=== PATIENT | female | born 1945 | race Caucasian/White ===

== ENCOUNTER 2019-02-03 05:38 | Inpatient (IN) | payer MEDICARE, OTHER ==
[2019-01-21 13:02] LABS: BASOPHILS % (AUTO) 0.5 % (0-1); EOSINOPHILS # (AUTO) 0.2 X10'3 (0-0.9); EOSINOPHILS % (AUTO) 2.4 % (0-6); LYMPHOCYTES # (AUTO) 2.1 X10'3 (1.1-4.8); LYMPHOCYTES % (AUTO) 23.6 % (21-51); MEAN CORPUSCULAR HEMOGLOBIN 30.3 PG (27.0-31.0); MEAN CORPUSCULAR HGB CONC 33.4 g/dL (33.0-36.5); MEAN CORPUSCULAR VOLUME 90.6 FL (78-98); MEAN PLATELET VOLUME 9.1 FL (7.4-10.4); MONOCYTES # (AUTO) 0.7 X10'3 (0-0.9); MONOCYTES % (AUTO) 7.5 % (2-12); PRE OP HEMATOCRIT 39.8 % (35.0-45.0); PRE OP HEMOGLOBIN 13.3 g/dL (12.0-16.0); PRE OP PLATELET COUNT 253 X10'3 (140-440); RED BLOOD COUNT 4.39 X10'6 (4.20-5.60); RED CELL DISTRIBUTION WIDTH 13.2 % (11.5-14.5)
[2019-01-21 13:04] LABS: CLARITY,URINE CLOUDY (Clear); COLOR,URINE YELLOW (Yellow); GLUCOSE, URINE NEGATIVE (Neg); KETONES,URINE NEGATIVE (Neg); LEUKOCYTE ESTERASE ,URINE MODERATE (Neg); NITRITES, URINE POSITIVE (Neg); OCCULT BLOOD,URINE MODERATE (Neg); PROTEIN,URINE NEGATIVE (Neg); UA COLLECTION TYPE CLN CATCH MIDSTREAM; UROBILINOGEN,URINE 0.2 E.U/dL (0.2-1.0)
[2019-01-21 13:10] LABS: MUCUS STRANDS FEW /LPF (Neg); SQUAMOUS EPITHELIAL CELL,UR FEW /LPF (FEW); WBC CLUMPS,URINE MANY /HPF (NEGATIVE); WBC,URINE 50-100 /HPF (0-4)
[2019-01-21 13:11] LABS: BACTERIA,URINE 2+ /HPF (Neg)
[2019-01-21 13:27] LABS: ALBUMIN 3.6 G/DL (3.4-5.0); ALBUMIN/GLOBULIN RATIO 1.1 (1.1-1.5); ALKALINE PHOSPHATASE 80 IU/L (46-116); BLOOD UREA NITROGEN 22 MG/DL (7-18); BUN/CREATININE RATIO 34.9 (6.6-38.0); CALCIUM 8.9 MG/DL (8.5-10.1); CHLORIDE 105 MMOL/L (99-107); CREATININE 0.63 MG/DL (0.40-0.90); PRE OP ALT 36 U/L (30-65); PRE OP ANION GAP 7 (8-16); PRE OP AST 17 U/L (10-37); PRE OP BILIRUB, TOTAL 0.3 MG/DL (0.0-1.0); PRE OP GLUCOSE 95 MG/DL (70-104); PRE OP POTASSIUM 3.6 MMOL/L (3.4-5.1); PRE OP SODIUM 142 MMOL/L (135-145); TOTAL PROTEIN 6.9 G/DL (6.4-8.2); eGFR > 90 ML/MIN
[2019-02-03] VITALS (20 sets, daily range): BP systolic 110–175; BP diastolic 48–93
[~2019-02-03] VITALS: Ht 165.1 cm; Wt 108.7 kg
[~2019-02-03 05:38] MED LIST: ANAS1TAB49 PO; CA C1TAB95 PO; CELE-193 PO; GLUC100017 PO; HYAL1POW9 PO; MAGN400C PO; MULT-1074 PO; POTASSIUM OTC PO; TURM500C4 PO
[2019-02-03] MEDS ORDERED: celeCOXIB 100mg capsule PO ONE (06:00)
[2019-02-03] MEDS ORDERED: tranexamic acid inj. 1,000 MG in normal saline 100 ML IV ONE (06:00)
[2019-02-03] MEDS ORDERED: acetaminophen 325mg tablet PO ONE (06:00)
[2019-02-03] MEDS ORDERED: gabapentin 300mg capsule PO ONE (06:00)
[2019-02-03] MEDS ORDERED: oxyCODONE SR 10mg (sust. release) tab -2 tabs (20mg) PO ONE (06:00)
[2019-02-03] MEDS ORDERED: metoclopramide 5 mg/ml inj IV ONE (06:00)
[2019-02-03] MEDS ORDERED: ringers solution, lacted 1,000 ML IV SCH ×2 (06:00→09:43)
[2019-02-03] MEDS ORDERED: famotidine 20mg tablet PO ONE (06:00)
[2019-02-03] MEDS ORDERED: ceFAZolin 2gm in dextrose, iso 100 ML IV ONE (06:00)
[2019-02-03] MEDS ORDERED: vancomycin inj 1,500 MG in normal saline 300ml IV soln IV ONE (06:00)
[2019-02-03] MEDS ORDERED: LIDOcaine 1% (10mg/ml) 2ml vial ONE (06:04)
[2019-02-03] MEDS ORDERED: HYDROmorphone inj. 0.5 MG/0.5 ML DISP.SYRIN IV PRN (06:45)
[2019-02-03] MEDS ORDERED: magnesium hydroxide 30ml (MOM) UD suspension PO PRN (06:45)
[2019-02-03] MEDS ORDERED: oxyCODONE/APAP 5-325mg tablet PO PRN (06:45)
[2019-02-03] MEDS ORDERED: celeCOXIB 100mg capsule PO PRN (06:45)
[2019-02-03] MEDS ORDERED: acetaminophen 325mg tablet PO PRN (06:45)
[2019-02-03] MEDS ORDERED: diphenhydrAMINE 25mg capsule PO PRN ×2 (06:45)
[2019-02-03] MEDS ORDERED: HYDROmorphone 1 mg/ml syringe IV PRN (06:45)
[2019-02-03] MEDS ORDERED: bisacodyl 10mg suppository rectal RC PRN (06:45)
[2019-02-03] MEDS ORDERED: ondansetron/PF 4mg/2ml inj IV PRN ×2 (06:45→09:45)
[2019-02-03] MEDS ORDERED: ketorolac trometh. 30mg/ml inj. ONE (07:43)
[2019-02-03] MEDS ORDERED: epiNEPHrine 1 mg/ml inj ONE (07:43)
[2019-02-03] MEDS ORDERED: vancomycin 1,000mg inj ONE (07:44)
[2019-02-03] MEDS ORDERED: ROPIVAcaine 0.5% (5mg/ml) 30ml vial ONE (07:44)
[2019-02-03] MEDS ORDERED: POTASSIUM OTC 99 MG PO SCH (08:00)
[2019-02-03] MEDS ORDERED: MIDAZolam 1mg/ml 10ml vial ONE (08:15)
[2019-02-03] MEDS ORDERED: fentaNYL/PF 50MCG/1 ML 2ML syringe ONE (08:15)
[2019-02-03] MEDS ORDERED: ePHEDrine 50MG/ML INJ. ONE (08:46)
[2019-02-03] MEDS ORDERED: proCHLORperazine 10 MG/2 ml inj IV PRN (09:45)
[2019-02-03] MEDS ORDERED: meperidine/PF 25mg/ml syringe IV PRN ×3 (09:45)
[2019-02-03] MEDS ORDERED: morphine 4 MG/ML inj SYRINge IV PRN ×2 (09:45)
[2019-02-03] MEDS ORDERED: ROPIVAcaine 0.2%/PF PAIN PUMP 550 ML IJ SCH (10:30)
--- NOTE | 2019-02-03 10:57 | NUR ---
Received from OR via , accompanied by Anesthesiologist DR BAKER and report given by Anesthesiolgist. AWAKE AND JAYSON PAIN. VITALS STABLE. DRESSING DI. HAS SENSATION TO BILAT FEET. MUNOZ WITH CLEAR URINE.
--- NOTE | 2019-02-03 12:16 | NUR ---
Report received from recovery
--- NOTE | 2019-02-03 12:17 | NUR ---
Report called to receiving nurse. Transferred via [facility]ongings . Special Issues communicated to receiving nurse. AWAKE AND ORIENTED. VITALS STABLE. DRESSING DI. STATES PAIN MUCH IMPROVED. TO ORTHO RM [id number] AT THIS TIME.
[2019-02-03] MEDS: gabapentin 300mg capsule PO SCH ×3 (13:00→20:30)
[2019-02-03] MEDS: multivitamins, therapeutics tablet PO SCH (13:00)
[2019-02-03] MEDS: anastrozole 1 MG tablet PO SCH (13:00)
[2019-02-03] MEDS: ascorbic acid 500mg tablet PO SCH ×2 (13:01→20:31)
[2019-02-03] MEDS: aspirin 325mg tablet PO SCH (13:01)
[2019-02-03] MEDS: potassium cl 20mEq in 1/2 NS 1,000 ML IV SCH ×3 (13:03→22:45)
--- NOTE | 2019-02-03 13:10 | NUR ---
ON Q PUMP IN CREASED TO 10ML/HR
[2019-02-03] MEDS: oxyCODONE/APAP 5-325mg tablet PO PRN ×2 (14:11→20:30)
[2019-02-03] MEDS ORDERED: tranexamic acid inj. 1,000 MG in normal saline 100ml IV soln 100 ML IV ONE (15:30)
[2019-02-03] MEDS: cefazolin/dext.iso 2gm/100ml 100 ML IV SCH (15:56)
[2019-02-03] MEDS ORDERED: VANCOMYCIN 1,500MG inj. 1,500 MG in normal saline 250ml IV soln 280 ML IV ONE (18:00)
--- NOTE | 2019-02-03 18:28 | NUR ---
Problems reprioritized. Patient report given, questions answered & plan of care reviewed with Veronica CRUZ.
[2019-02-03] MEDS: sennosides 8.6mg tablet PO SCH (20:30)
[2019-02-03] MEDS ORDERED: oxyCODONE/APAP 10/325mg tablet PO PRN (21:20)
--- NOTE | 2019-02-03 22:00 | NUR ---
decreased onQ to 8
[2019-02-04] MEDS: cefazolin/dext.iso 2gm/100ml 100 ML IV SCH (01:06)
[2019-02-04 02:00] VITALS: BP 110/49
[2019-02-04] MEDS: potassium cl 20mEq in 1/2 NS 1,000 ML IV SCH ×3 (03:24→22:45)
[2019-02-04] MEDS: oxyCODONE/APAP 10/325mg tablet PO PRN ×3 (03:25→15:43)
[2019-02-04 06:00] VITALS: BP 146/68
--- NOTE | 2019-02-04 06:31 | NUR ---
reported to days. noted leo removed, percocet due at 0730
--- NOTE | 2019-02-04 06:43 | NUR ---
Patient in room [facility]TH[facility] 4014. I have received report from Don CRUZ and had the opportunity to ask questions and assume patient care.
[2019-02-04 06:54] LABS: BASOPHILS % (AUTO) 0.1 % (0-1); EOSINOPHILS # (AUTO) 0.1 X10'3 (0-0.9); EOSINOPHILS % (AUTO) 0.7 % (0-6); HEMATOCRIT 32.2 % (35.0-45.0); HEMOGLOBIN 10.9 g/dl (12.0-16.0); LYMPHOCYTES # (AUTO) 1.8 X10'3 (1.1-4.8); LYMPHOCYTES % (AUTO) 18.7 % (21-51); MEAN CORPUSCULAR HEMOGLOBIN 30.7 PG (27.0-31.0); MEAN CORPUSCULAR HGB CONC 33.8 g/dL (33.0-36.5); MEAN CORPUSCULAR VOLUME 90.8 FL (78-98); MEAN PLATELET VOLUME 9.5 FL (7.4-10.4); MONOCYTES # (AUTO) 0.9 X10'3 (0-0.9); MONOCYTES % (AUTO) 9.1 % (2-12); NEUTROPHILS # (AUTO) 6.8 X10'3 (1.8-7.7); NEUTROPHILS % (AUTO) 71.4 % (42-75); PLATELET COUNT 203 X10'3 (140-440); RED BLOOD COUNT 3.55 X10'6 (4.20-5.60); WHITE BLOOD COUNT 9.6 X10'3 (4.5-11.0)
[2019-02-04 07:11] LABS: ANION GAP 7 (8-16); CHLORIDE 108 MMOL/L (99-107); POTASSIUM 4.2 MMOL/L (3.5-5.1); SODIUM 141 MMOL/L (135-145); TOTAL CARBON DIOXIDE 25.9 MMOL/L (24-32)
[2019-02-04] MEDS: aspirin 325mg tablet PO SCH (07:40)
[2019-02-04] MEDS: ascorbic acid 500mg tablet PO SCH ×2 (07:41→20:11)
[2019-02-04] MEDS: multivitamins, therapeutics tablet PO SCH (07:42)
[2019-02-04] MEDS: calcium carbonate/vitamin D3 tablet PO SCH (07:42)
[2019-02-04] MEDS: gabapentin 300mg capsule PO SCH ×3 (07:43→20:11)
[2019-02-04] MEDS: magnesium oxide 400mg tablet PO SCH (07:43)
[2019-02-04] MEDS: anastrozole 1 MG tablet PO SCH (07:46)
[2019-02-04 10:00] VITALS: BP 120/51
--- NOTE | 2019-02-04 12:13 | NUR ---
Joint replacement consult: Pt seen by STEPHANIE for written/verbal high protein ed. STEPHANIE reviewed high protein needs for wound healing, immune strength, high protein foods, and protein supplementation options. STEPHANIE contact information provided in case of further questions. Declines additional proteins at this time. Addendum: 02/04/19 at [address] Amended: Links added.
[2019-02-04 14:00] VITALS: BP 160/68
[2019-02-04 18:00] VITALS: BP 157/68
--- NOTE | 2019-02-04 18:15 | NUR ---
Problems reprioritized. Patient report given, questions answered & plan of care reviewed with Zara CRUZ.
[2019-02-04] MEDS: sennosides 8.6mg tablet PO SCH (20:10)
[2019-02-04 22:00] VITALS: BP 154/59
[2019-02-05] MEDS: oxyCODONE/APAP 10/325mg tablet PO PRN ×5 (03:04→23:35)
[2019-02-05 05:41] LABS: BASOPHILS % (AUTO) 0.3 % (0-1); EOSINOPHILS # (AUTO) 0.2 X10'3 (0-0.9); EOSINOPHILS % (AUTO) 1.6 % (0-6); HEMATOCRIT 32.3 % (35.0-45.0); HEMOGLOBIN 10.9 g/dl (12.0-16.0); LYMPHOCYTES # (AUTO) 1.4 X10'3 (1.1-4.8); LYMPHOCYTES % (AUTO) 13.1 % (21-51); MEAN CORPUSCULAR HEMOGLOBIN 30.7 PG (27.0-31.0); MEAN CORPUSCULAR HGB CONC 33.8 g/dL (33.0-36.5); MEAN CORPUSCULAR VOLUME 90.8 FL (78-98); MONOCYTES # (AUTO) 0.9 X10'3 (0-0.9); NEUTROPHILS # (AUTO) 7.9 X10'3 (1.8-7.7); PLATELET COUNT 202 X10'3 (140-440); RED BLOOD COUNT 3.55 X10'6 (4.20-5.60); RED CELL DISTRIBUTION WIDTH 13.3 % (11.5-14.5); WHITE BLOOD COUNT 10.4 X10'3 (4.5-11.0)
[2019-02-05 06:00] VITALS: BP 151/63
--- NOTE | 2019-02-05 06:09 | NUR ---
Problems reprioritized. Patient report given, questions answered & plan of care reviewed with ANTHONY SIN.
--- NOTE | 2019-02-05 06:25 | NUR ---
Patient in room [facility]TH[facility] 4014. I have received report from Zara CRUZ and had the opportunity to ask questions and assume patient care.
[2019-02-05] MEDS: anastrozole 1 MG tablet PO SCH (08:13)
[2019-02-05] MEDS: multivitamins, therapeutics tablet PO SCH (08:14)
[2019-02-05] MEDS: gabapentin 300mg capsule PO SCH ×3 (08:14→20:47)
[2019-02-05] MEDS: aspirin 325mg tablet PO SCH (08:14)
[2019-02-05] MEDS: magnesium oxide 400mg tablet PO SCH (08:15)
[2019-02-05] MEDS: ascorbic acid 500mg tablet PO SCH ×2 (08:15→20:46)
[2019-02-05] MEDS: calcium carbonate/vitamin D3 tablet PO SCH (08:15)
[2019-02-05] MEDS ORDERED: ASPI-1 PO (08:36)
[2019-02-05 10:00] VITALS: BP 167/75
[2019-02-05] MEDS ORDERED: anastrozole 1 MG tablet PO SCH (14:10)
[2019-02-05 18:00] VITALS: BP 139/77
--- NOTE | 2019-02-05 18:05 | NUR ---
Patient in room [facility]TH[facility] 4014. I have received report from Demario CRUZ and had the opportunity to ask questions and assume patient care.
--- NOTE | 2019-02-05 18:10 | NUR ---
Problems reprioritized. Patient report given, questions answered & plan of care reviewed with Ericka CRUZ.
--- NOTE | 2019-02-05 19:45 | NUR ---
Pt's On Q pump is at 8ml/hr and doing fine for now, will assess it at a later time and see if it is empty and needs removed.
[2019-02-05] MEDS: sennosides 8.6mg tablet PO SCH (20:46)
[2019-02-05 22:00] VITALS: BP 124/48
--- NOTE | 2019-02-05 23:52 | NUR ---
There is still some medicine in the On Q pump at this time.
--- NOTE | 2019-02-06 00:04 | NUR ---
I placed a pillow under the operative side ankle to keep the knee/ leg from rotating out.
--- NOTE | 2019-02-06 02:39 | NUR ---
I removed the On Q pump at this time since it was empty; removed without difficulty.
[2019-02-06] MEDS: oxyCODONE/APAP 10/325mg tablet PO PRN ×2 (04:28→13:16)
[2019-02-06 05:16] LABS: BASOPHILS % (AUTO) 0.3 % (0-1); EOSINOPHILS # (AUTO) 0.2 X10'3 (0-0.9); EOSINOPHILS % (AUTO) 2.3 % (0-6); HEMATOCRIT 30.8 % (35.0-45.0); HEMOGLOBIN 10.5 g/dl (12.0-16.0); LYMPHOCYTES # (AUTO) 1.8 X10'3 (1.1-4.8); LYMPHOCYTES % (AUTO) 19.8 % (21-51); MEAN CORPUSCULAR HEMOGLOBIN 31.1 PG (27.0-31.0); MEAN CORPUSCULAR HGB CONC 34.3 g/dL (33.0-36.5); MEAN CORPUSCULAR VOLUME 90.7 FL (78-98); MEAN PLATELET VOLUME 8.8 FL (7.4-10.4); MONOCYTES # (AUTO) 0.9 X10'3 (0-0.9); NEUTROPHILS # (AUTO) 6.1 X10'3 (1.8-7.7); NEUTROPHILS % (AUTO) 67.6 % (42-75); PLATELET COUNT 194 X10'3 (140-440); RED BLOOD COUNT 3.39 X10'6 (4.20-5.60); RED CELL DISTRIBUTION WIDTH 13.2 % (11.5-14.5)
[2019-02-06 06:00] VITALS: BP 139/56
--- NOTE | 2019-02-06 06:15 | NUR ---
Problems reprioritized. Patient report given, questions answered & plan of care reviewed with Art RN.
[2019-02-06] MEDS: multivitamins, therapeutics tablet PO SCH (08:34)
[2019-02-06] MEDS: gabapentin 300mg capsule PO SCH ×2 (08:34→13:16)
[2019-02-06] MEDS: calcium carbonate/vitamin D3 tablet PO SCH (08:34)
[2019-02-06] MEDS: aspirin 325mg tablet PO SCH (08:34)
[2019-02-06] MEDS: magnesium oxide 400mg tablet PO SCH (08:34)
[2019-02-06] MEDS: ascorbic acid 500mg tablet PO SCH (08:34)
[2019-02-06 10:00] VITALS: BP 126/58
--- NOTE | 2019-02-06 13:50 | NUR ---
Pt given DC instructions, previously had Rx filled. All known pt property with pt upon discharge. Pt assisted to pov in WC with Tech. All presented questions were addressed.
== END 2019-02-06 13:50 | disposition home or self-care (01) | DRG 470 ==
LOC: PAS IN 05:38 → EDSTATUS 11:00 → ORTHO 4S 12:25
PROVIDERS: ADMIT Orthopaedic Surgery; ATTEND Orthopaedic Surgery
PROC: 3E0T3BZ Introduction of Anesthetic Agent into Peripheral Nerves and Plexi, Percutaneous Approach (ICD-10-PCS; 2019-02-03)
PROC: 0SRD0J9 Replacement of Left Knee Joint with Synthetic Substitute, Cemented, Open Approach (ICD-10-PCS; principal; 2019-02-03 08:16)
DX: M17.12 Unilateral primary osteoarthritis, left knee (principal); D62 Acute posthemorrhagic anemia; Z85.3 Personal history of malignant neoplasm of breast; Z87.891 Personal history of nicotine dependence; Z98.51 Tubal ligation status; Z92.3 Personal history of irradiation; Z79.899 Other long term (current) drug therapy
CPT/HCPCS: 36415; 71046; 73560; 80051; 80053; 81001; 82948; 85025; 86885; 86900; 86901; 87070; 87077; 87088; 87186; 97110; 97116; 97162; 97530; A6449; A6455; A7000; C1713; C1758; C1776; G0378; J0171; J0690; J1885; J2175; J2250; J2765; J2795; J3010; J3370; J3490; J7030; J7120